=== PATIENT | male | born 1990 | race Caucasian/White ===

== ENCOUNTER 2017-03-16 15:12 | Emergency (ER) | payer OTHER ==
[~2017-03-16] VITALS: Ht 165.1 cm; Wt 64.9 kg
[~2017-03-16 15:12] MED LIST: METHADOSE10 MG PO; NOHOMEMEDS
[2017-03-16] MEDS ORDERED: PEN-VEE K,VEET500 MG PO (15:58)
[2017-03-16 16:18] VITALS: BP 122/93
== END 2017-03-16 16:18 | disposition home or self-care (01) ==
LOC: EME 15:12
DX: K04.7 Periapical abscess without sinus (principal); L03.211 Cellulitis of face; Z87.898 Personal history of other specified conditions
CPT/HCPCS: 99281; 99283